=== PATIENT | male | born 1985 | race Caucasian/White ===

== ENCOUNTER 2023-03-15 17:57 | Emergency (ER) | payer OTHER ==
[~2023-03-15] VITALS: Ht 182.9 cm; Wt 127.0 kg
[2023-03-15 18:05] VITALS: O2SAT 98
[2023-03-15] MEDS ORDERED: KETOROLAC 30MG/ML VIAL IM ONE (21:00)
[2023-03-15 21:49] VITALS: BP 145/88
[2023-03-15] MEDS ORDERED: NAPR-1176 MT (22:13)
[2023-03-15 23:07] VITALS: PULSE 86; RESP 20; TEMP 98.4
== END 2023-03-15 23:10 | disposition home or self-care (01) ==
LOC: ER 17:57
DX: S80.11XA Contusion of right lower leg, initial encounter (principal); Z98.890 Other specified postprocedural states; X58.XXXA Exposure to other specified factors, initial encounter; Y93.89 Activity, other specified; Y92.89 Other specified places as the place of occurrence of the external cause; Y99.8 Other external cause status
CPT/HCPCS: 73590; 96372; 99283; J1885; Z7610